=== PATIENT | female | born 1965 | race Asian ===

== ENCOUNTER 2016-07-20 18:25 | Emergency (ER) | payer OTHER ==
[2016-07-20] MEDS ORDERED: IBUPROFEN 600 MG TABLET (FP) PO ONE ×2 (18:50→18:51)
[2016-07-20 18:55] VITALS: BP 140/92; PULSE 103; TEMP 98.2; BMI 32.9
--- NOTE | 2016-07-20 19:28 | PDOC ---
History of Present Illness - General History Source: Patient Exam Limitations: No Limitations - History of Present Illness Initial Comments: 07/20/16 20:07 The patient is a 51 year old female, with no significant past medical history, who presents to the emergency department status post a dog bite that she received 15 minutes prior to arrival. The patient reports that she was out walking her dog this afternoon when a lost dog charged at her dog. She then tried to pull her dog back but was but on her right thumb before the lost dog ran off. She states that she is not sure which dog had bit her. She reports that her dog is up to date on all of its immunizations. The patient states that she received the rabies vaccine at age 6. She denies any other bodily pain or injury. She denies chest pain, shortness of breath, headache and dizziness. The patient states that she cannot remember when she received her last tetanus shot. 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 Allergies: sulfa, codeine Social history: Never smoked PCP: Dr. Sandy Dorado <Chiquita Cason - Last Filed: 07/20/16 20:35> <Lou oWods - Last Filed: 07/21/16 02:04> - General Chief Complaint: Bite Stated Complaint: DOG BIT OF RIGHT THUMB Time Seen by Provider: 07/20/16 19:25 Past History <Chiquita Cason - Last Filed: 07/20/16 20:35> - Psycho/Social/Smoking Cessation Hx Anxiety: No Suicidal Ideation: No Smoking History: Never smoked Hx Alcohol Use: No Drug/Substance Use Hx: No Substance Use Type: None <Lou Woods - Last Filed: 07/21/16 02:04> - Past Medical History Allergies/Adverse Reactions: Allergies Allergy/AdvReac Type Severity Reaction Status Date / Time Sulfa (Sulfonamide Allergy Intermediate Rash Verified 07/20/16 18:43 Antibiotics) codeine AdvReac Intermediate Vomiting Verified 07/20/16 18:43 Home Medications: Ambulatory Orders Amox-Tr/K Cl [Augmentin - 875Mg Tablet] 1 tab PO BID #10 tablet 07/20/16 Review of Systems - Review of Systems Able to Perform ROS?: Yes Comments:: 07/20/16 20:07 CONSTITUTIONAL: Absent: fever, no chills, no fatigue EYES: Absent: visual changes ENT: Absent: ear pain, no sore throat CARDIOVASCULAR: Absent: chest pain, no palpitations RESPIRATORY: Absent: cough, no SOB GI: Absent: abdominal pain, no nausea, no vomiting, no constipation, no diarrhea GENITOURINARY: Absent: dysuria, no frequency, no hematuria MUSCULOSKELETAL: Absent: back pain, no arthralgia, no myalgia SKIN: +right thumb dog bite Absent: rash <KaliaanaChiquita - Last Filed: 07/20/16 20:35> *Physical Exam - Vital Signs Last Vital Signs Temp Pulse Resp BP Pulse Ox 98.2 F 103 H 15 140/92 100 07/20/16 18:42 07/20/16 18:42 07/20/16 18:42 07/20/16 18:42 07/20/16 18:42 - Physical Exam Comments: 07/20/16 20:07 GENERAL: The patient is awake, alert, and fully oriented, in no acute distress. HEAD:Normal with no signs of trauma. EYES: Pupils equal, round and reactive to light, extraocular movements intact, sclera anicteric, conjunctiva clear. EXTREMITIES: Normal range of motion, no edema. NEUROLOGICAL: Normal speech, normal gait. PSYCH: Normal mood, normal affect. SKIN: +1 cm full thickness linear laceration of the dorsum of the right thumb just proximal to the IP joint. Motor and sensory function is intact. She also has a 2mm partial thickness laceration of the palmar aspect of the proximal phalanx of the right thumb and a 2mm partial thickness laceration of the palmar aspect of the distal phalanx of the right thumb. No other injuries. Warm, Dry, normal turgor <KaliaanaChiquita - Last Filed: 07/20/16 20:35> - Vital Signs Last Vital Signs Temp Pulse Resp BP Pulse Ox 98.2 F 103 H 15 140/92 100 07/20/16 18:42 07/20/16 18:42 07/20/16 18:42 07/20/16 18:42 07/20/16 18:42 <Lou Woods - Last Filed: 07/21/16 02:04> Procedures - Laceration/Wound Repair Right Dorsal 1st digit Wound Length: to 2.5 cm Wound Explored: clean Wound's Depth, Shape: linear Irrigated w/ Saline: Yes Betadine Prep: No (Hibiclens/ethanol) Anesthesia: 1% Lidocaine Amount of Anesthetic (ccs): 1 Wound Repaired With: Sutures Suture Size/Type: 5:0 Number of Sutures: 1 Layer Closure: No Sterile Dressing Applied: Yes Splint Applied: No Sling Applied: No Progress: Wounds cleansed with Hibiclens/ethanol solution and sterilely draped. 0.5 mL of 1% lidocaine infiltrated into the linear laceration on the dorsal surface local anesthesia. Wounds irrigated with 40 mL of sterile normal saline. Laceration closed with one suture of 5-0 nylon. All wounds covered with bacitracin and protective sterile gauze dressing applied. <Lou Woods - Last Filed: 07/21/16 02:04> ED Treatment Course - Medications Given in the ED: ED Medications Discontinued Medications Generic Name Dose Route Start Last Admin Trade Name Freq PRN Reason Stop Dose Admin Ibuprofen 600 mg 07/20/16 18:50 07/20/16 18:50 Motrin - PO 07/20/16 18:51 600 mg NOW ONE Administration <Chiquita Cason - Last Filed: 07/20/16 20:35> - Medications Given in the ED: ED Medications Discontinued Medications Generic Name Dose Route Start Last Admin Trade Name Freq PRN Reason Stop Dose Admin Ibuprofen 600 mg 07/20/16 18:50 07/20/16 18:50 Motrin - PO 07/20/16 18:51 600 mg NOW ONE Administration <Lou Woods - Last Filed: 07/21/16 02:04> Progress Note - Progress Note Progress Note: Documentation has been prepared under my direction and personally reviewed by me in its entirety. I attest that this documented accurately reflects all work, treatment, procedures and medical decision making performed by me. 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 Patient had been breaking a fight between her dog and an unknown dog who had presented unleashed while patient was walking her own dog. Patient is on clear which dog bit her. Patient's history notable for rabies vaccine in childhood (ages 6 and 13). Exam as noted Details discussed with Dr. Thalia Irizarry of [facility]. Since the unleashed dog had a collar, is very likely that it is a domestic dog and therefore immunized. The Department of Health will make special efforts to locate this dog. Meanwhile, the department will contact the patient and go over all details of the case. If the dog cannot be located, the patient will require only 2 doses of rabies PEP[3 days apart] because of her prior vaccination. Prior to departure from the ER, the patient spoke by telephone to spoke by telephone to a sales representative consultant from the Department of Health. Contact information for the patient was obtained by the sales representative consultant. Repair of the wound performed as noted above. Patient given first dose of Augmentin 875/125 with 5 day course sent to her pharmacy. Patient should return that she has any signs of infection in the wound. Suture should be removed in one week. <Lou Woods - Last Filed: 07/21/16 02:04> *DC/Admit/Observation/Transfer - Attestations Scribe Attestion: 07/20/16 20:08 Documentation prepared by REE Toledo, acting as biomedical equipment specialist for Lou Woods MD. <Chiquita Cason - Last Filed: 07/20/16 20:35> <Lou Woods - Last Filed: 07/21/16 02:04> Diagnosis at time of Disposition: Dog bite of right thumb Qualifiers: Encounter type: initial encounter Qualified Code(s): S61.051A - Open bite of right thumb without damage to nail, initial encounter - Discharge Dispostion Disposition: HOME Condition at time of disposition: Stable - Prescriptions Prescriptions: Amox-Tr/K Cl [Augmentin - 875Mg Tablet] 1 tab PO BID #10 tablet - Referrals Referrals: Sandy Dorado [Primary Care Provider] - - Patient Instructions Printed Discharge Instructions: DI for Dog Bite Additional Instructions: keep right hand elevated tonight keep original dressing on place as dry as possible for 48 hours Augmentin 875/125 twice a day for 5 days return to ER or see your doctor if wound is swollen/red/painful have suture removed in 1 week [facility] tomorrow as arranged
[2016-07-20] MEDS ORDERED: DIPHTH,PERTUSS(ACELL),TET 0.5 ML DISP.SYRIN IM ONE (20:02)
[2016-07-20] MEDS ORDERED: AMOX TR/POT CLAV 875MG/125MG TABLETS (FP) PO ONE (20:23)
[2016-07-20] MEDS ORDERED: AMOX TR/POT CLAV 875MG/125MG TABLETS (FP) ONE (20:35)
== END 2016-07-20 20:45 | disposition home or self-care (01) ==
LOC: FER 18:25
PROC: 3E0234Z Introduction of Serum, Toxoid and Vaccine into Muscle, Percutaneous Approach (ICD-10-PCS; principal; 2016-07-20)
DX: S61.051A Open bite of right thumb without damage to nail, initial encounter (principal); W54.0XXA Bitten by dog, initial encounter; Y93.89 Activity, other specified; Y92.410 Unspecified street and highway as the place of occurrence of the external cause
CPT/HCPCS: 90715; 99282-25